=== PATIENT | male | born 1960 | race African-American/Black ===

== ENCOUNTER 2019-11-06 23:04 | Emergency (ER) | payer MEDICARE ==
[2019-11-07] MEDS ORDERED: LIDOCAINE 1% INJ-PF (10 MG/ML) 30 ML SDV INJ ONE (00:01)
[2019-11-07] MEDS ORDERED: LIDOCAINE 2% VISCOUS SOLN 20 ML UDCUP PO ONE (00:02)
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
--- NOTE | 2019-11-07 03:00 | Operative Report ---
Nonrecallable Operative Report DATE OF SURGERY: 11/07/19 PREOPERATIVE DIAGNOSIS: dysphagia, disloged gastrostomy tube POSTOPERATIVE DIAGNOSIS: Dysphasia, and dislodged gastrostomy tube OPERATION: Replacement of gastrostomy tube SURGEON: NAT GRAHAM ANESTHESIA: Other TISSUE REMOVED OR ALTERED: None COMPLICATIONS: None INTRAOPERATIVE FINDINGS: See dictation PROCEDURE: Patient was seen in the [facility] in the emergency room. With a dislodged gastrostomy tube. Was a small sinus tract noted on his anterior abdominal wall. After appropriate consent and site verification the area on the anterior abdominal wall that had the previous gastrostomy tube was prepped with Betadine. Using a Peggy clamp the tract was minimally dilated. A 614 [place] Shepherd catheter was placed into the tract and felt to extend into the stomach itself. The tube was then irrigated with saline and it returned bilious fluid confirming good placement in the gastric cavity. The balloon was blown up and the tube was pulled back to buttress the balloon up against the gastric wall. This completed the procedure. The patient tolerated the procedure well.
[2019-11-07 03:48] VITALS: BP 138/90
== END 2019-11-07 03:47 | disposition home or self-care (01) ==
LOC: ER 23:04
PROC: 0DH63UZ Insertion of Feeding Device into Stomach, Percutaneous Approach (ICD-10-PCS; principal; 2019-11-06)
DX: K94.20 Gastrostomy complication, unspecified (principal); R13.10 Dysphagia, unspecified; Z79.899 Other long term (current) drug therapy; I25.10 Atherosclerotic heart disease of native coronary artery without angina pectoris; I10 Essential (primary) hypertension; E11.9 Type 2 diabetes mellitus without complications
CPT/HCPCS: 99283; 43762; C1758; J3490 ×2

== ENCOUNTER 2020-10-28 14:48 | Emergency (ER) | payer MEDICARE ==
[2020-10-28] MEDS ORDERED: LIDOCAINE 2% URO-JET 5 ML KIT MM ONE (15:16)
[2020-10-28 19:18] LABS: APPEARANCE,URINE SLIGHTLY-CLOUDY; BILIRUBIN,URINE NEGATIVE (NEGATIVE); COLOR,URINE YELLOW; GLUCOSE, URINE NEGATIVE (NEGATIVE); KETONES,URINE NEGATIVE (NEGATIVE); LEUKOCYTE ESTERASE,URINE LARGE (NEGATIVE); NITRITE,URINE NEGATIVE (NEGATIVE); PROTEIN,URINE NEGATIVE (NEGATIVE); URINE SPECIFIC GRAVITY 1.018; UROBILINOGEN,URINE NEGATIVE mg/dL (<2.0)
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
[2020-10-28 21:46] LABS: ABSOLUTE EOSINOPHILS # (AUTO) 0.1 10^3/uL (0.0-0.6); ABSOLUTE MONOCYTES (AUTO) 0.6 10^3/uL (0.1-1.4); ABSOLUTE NEUT (AUTO) 5.8 10^3/uL (1.7-8.2); BASOPHILS % (AUTO) 0.4 % (0-2); EOSINOPHILS % (AUTO) 1.8 % (0-6); HEMATOCRIT 42.6 % (37.9-51.0); HEMOGLOBIN 14.5 g/dL (13.5-17.0); LYMPHOCYTES % (AUTO) 12.9 % (13-45); MEAN CORPUSCULAR HEMOGLOBIN 27.6 pg (27.0-33.4); MEAN CORPUSCULAR VOLUME 81 fl (80-97); MONOCYTES % (AUTO) 7.9 % (3-13); PLATELET COUNT 373 10^3/uL (150-450); RED BLOOD COUNT 5.24 10^6/uL (4.35-5.55); TOTAL CELLS COUNTED % (AUTO) 100 %; WHITE BLOOD COUNT 7.5 10^3/uL (4.0-10.5)
[2020-10-28 22:03] LABS: ALBUMIN 4.1 g/dL (3.5-5.0); ALKALINE PHOSPHATASE 90 U/L (38-126); ASPARTATE AMINO TRANSFERASE 41 U/L (17-59); BILIRUBIN,DIRECT 0.1 mg/dL (0.0-0.4); BILIRUBIN,TOTAL 0.8 mg/dL (0.2-1.3); BLOOD UREA NITROGEN 50 mg/dL (7-20); CALCIUM 9.7 mg/dL (8.4-10.2); CHLORIDE 89 mmol/L (98-107); GLUCOSE 105 mg/dL (75-110); POTASSIUM 3.2 mmol/L (3.6-5.0); TOTAL PROTEIN 8.6 g/dL (6.3-8.2)
[2020-10-28 22:09] LABS: ANION GAP 9 (5-19)
[2020-10-28 22:12] LABS: CARBON DIOXIDE 40 mmol/L (22-30)
[2020-10-28 23:45] VITALS: BP 124/74
== END 2020-10-29 00:18 | disposition home or self-care (01) ==
LOC: ER 14:48
DX: Z46.6 Encounter for fitting and adjustment of urinary device (principal); N39.0 Urinary tract infection, site not specified; R31.9 Hematuria, unspecified; I25.10 Atherosclerotic heart disease of native coronary artery without angina pectoris; E78.00 Pure hypercholesterolemia, unspecified; I69.322 Dysarthria following cerebral infarction; I10 Essential (primary) hypertension; E11.9 Type 2 diabetes mellitus without complications; F32.9 Major depressive disorder, single episode, unspecified; Z79.899 Other long term (current) drug therapy; Z93.1 Gastrostomy status; Z74.01 Bed confinement status
CPT/HCPCS: 99283; 51702; 36415; 85025; 80053; 81001; A9270; J3490